=== PATIENT | female | born 1985 | race Two or more races ===

== ENCOUNTER → 2024-11-05 | Day surgery (SDC) | payer BC ==
[2024-11-02 08:41] LABS: Urine Bacteria None Seen /hpf (None Seen)
[2024-11-02 08:45] LABS: Basophils # (auto) 0 10 ^3/uL (0-0.2); Basophils % (auto) 0.5 % (0.0-2.0); Eosinophils # (auto) 0.3 10 ^3/uL (0-0.8); Eosinophils % (auto) 3.9 % (0.0-7.0); Hematocrit 44.7 % (36.0-46.0); Hemoglobin 15.5 g/dL (12.2-16.2); Lymphocytes # (auto) 1.9 10 ^3/uL (0.4-5.4); Lymphocytes % (auto) 26.9 % (10.0-50.0); Mean Corpuscular Hemoglobin 29.3 pg (28.0-32.0); Mean Corpuscular Hgb Conc. 34.7 g/dL (32.0-36.0); Mean Corpuscular Volume 84.6 fL (80.0-100.0); Monocytes # (auto) 0.7 10 ^3/uL (0-1.3); Monocytes % (auto) 9.5 % (0.0-12.0); Neutrophils # (auto) 4.2 10 ^3/uL (1.6-8.6); Neutrophils % (auto) 59.2 % (37.0-80.0); Nucleated Red Blood Cells % 0.1 %; Platelet Count (auto) 367 10^3/uL (140-450); Red Blood Cells 5.28 10^6/uL (4.0-5.20); Red Cell Distribution Width 13.4 % (11.8-14.3)
[2024-11-02 08:52] LABS: Urine Blood Negative /uL (Negative); Urine Clarity Clear (Clear); Urine Color Yellow (Yellow); Urine Mucus FEW (None Seen); Urine Protein, UAD Negative (Negative); Urine Specific Gravity 1.028 (1.001-1.035); Urine Squamous Epithelial Cell FEW /hpf (<5); Urine Urobilinogen Normal (Negative); Urine WBC 2 /HPF (0-5); Urine pH 5.5 (5.0-9.0)
[2024-11-02 09:02] LABS: INR 0.98 (0.9-1.15); Partial Thromboplastin Time 29.3 SEC (24.5-34.5); Prothrombin Time 10.4 sec (9.3-11.8)
[2024-11-02 09:15] LABS: Alanine Aminotransferase 16 U/L (7-40); Albumin 4.4 g/dL (3.2-4.8); Alkaline Phosphatase 103 U/L (46-116); Anion Gap 6 (5-15); Aspartate Aminotransferase 13 U/L (13-40); BUN/Creatinine Ratio 12.7 (10.0-20.0); Bilirubin, Total 0.5 mg/dL (0.2-1.0); Blood Urea Nitrogen 14 mg/dL (9-23); Calcium 9.8 mg/dL (8.7-10.4); Carbon Dioxide 28 mmol/L (20-31); Chloride 104 mmol/L (98-107); Glucose 95 mg/dL (74-106); Potassium 4.3 mmol/L (3.5-5.1); Sodium 138 mmol/L (136-145); Total Protein 7.6 g/dL (5.7-8.2)
[~2024-11-05] VITALS: Ht 180.3 cm; Wt 158.8 kg
[~2024-11-05] MED LIST: APPLTAB PO; ASHW1CAP PO; ATOR10TA52 PO; HYDR-4072 PO; HYDROmorphone HCL 2 MG/ML VL/or syr IV PRN; IBUP-1456 PO; LACTATED RINGER'S 1,000 ML IV SCH; MECL12.586 PO; METOCLOPRAMIDE HCL 5MG/ml INJ 2ml VIAL IV PRN; ONDANSETRON HCL 4 MG/2 ML VIAL IV ONE; SCOP1DIS9 TD; SERT-160 PO; SUMA100T15 PO; ZOFR4T PO; ceFAZolin 2 GM/D5W50ml 50 ML IV ONE
[2024-11-05 07:51] VITALS: TEMP 97.2; O2SAT 98
[2024-11-05] MEDS: ACETAMINOPHEN IV 1000 MG/100ML (10MG/ML) IV PRN (08:17)
[2024-11-05] MEDS: ONDANSETRON HCL 4 MG/2 ML VIAL IV PRN (08:17)
[2024-11-05 08:55] VITALS: BP 117/69; PULSE 66; RESP 11; O2SAT 98
--- NOTE | 2024-11-05 13:53 | POSTOP ---
Post-Operative Note Post-Operative Note Preop Diagnosis misplaced iud Postop Diagnosis: misplaced iud Operation performed d and c,hysteroscopy Specimen emc Anesthesia: Mac Anesthesiologist: humza Blood Loss(fluid mgmt) 20ml Surgeon Janny Lau Implant na Complications & Mgmt none Additional Remarks no iud visualized in the cavity,stenotic os h and p job number [id number] Date 11/05/24 Time 13:50 Visit Coding OBGYN Date of Service: November 05, 2024 Billing Provider: JANNY LAU DO PRECISION INSTRUMENT AND TOOL MAKER Common Visit Codes: 08379-[id number] OBS CARE (HIGH) PRECISION INSTRUMENT AND TOOL MAKER Procedure Codes: 80669-K&C, DIAG OR THERAPEUTIC JANNY LAU DO November 05, 2024 13:52
--- NOTE | 2024-11-05 14:01 | DVHOP2 ---
Operative Report DATE OF OPERATION: 11/05/24 PREOPERATIVE DIAGNOSES: misplaced iud,morbid obesity,stenotic cervical os POSTOPERATIVE DIAGNOSES: same SURGEON: Laya Lau D.O. ANESTHESIOLOGIST: humza TYPE OF ANESTHESIA : General. CONSENT: The patient was informed of the risks and benefits of the procedure. The patient was informed of the risks and benefits of the procedure. These include but are not limited to , complications of anesthesia, postoperative infection, incomplete relief of symptoms, recurrence of symptoms, damage to blood vessels, nerves and tendons, deep venous thrombosis, pulmonary embolism and possible need for repeat surgery in the future. FINDINGS: proliferative endometrium, 8 wks size uterus.stenotic Cervix, Bulbous, [place], and urethrovesical glands appeared normal.no evidence of any iud in the uterus or cervical canal SPECIMEN: EMC COMPLICATIONS: None. BLOOD PRODUCTS USED: None. PROCEDURES: Hysteroscopy and dilatation and curettage. PROCEDURE IN DETAIL: The patient was taken to the operating room and placed in supine position. General anesthesia was performed without difficulty. She was then placed in Drew stirrups and prepped and draped in sterile fashion. Examination under anesthesia showed her to have a 8wks size uterus, Bulbous, [place], and urethrovesical glands appeared normal. A weighted speculum was placed posteriorly and right-angle Jorge anteriorly. Cervix was identified which was very stenotic subsequently it was dilated ,prior to dilatation it was grasped with a sharp tooth tenaculum. Uterus sounded her to approximately 8 cm.the hysteroscopewas placed within the uterus in which she was found to have no evidence of iud ,endometrium had somewhaT PROLIFERATIVE LINING . ENDOMETRIAL CURRETTING WAS DONESPECIMEN WAS SENT FOR PATHOLOGY. All instruments were removed FROM VAG AND CX, The patient was taken to recovery room in stable condition. CONDITION: The patient is stable ESTIMATED BLOOD LOSS: 20 mL Visit Coding OBGYN Date of Service: November 05, 2024 Billing Provider: LAYA LAU DO LITHOGRAPHER APPRENTICE Common Visit Codes: [id number] OBS CARE (HIGH) LITHOGRAPHER APPRENTICE Procedure Codes: 85658-Y&C, DIAG OR THERAPEUTIC LAYA LAU DO November 05, 2024 14:01
--- NOTE | 2024-11-05 14:02 | DVHDS2 ---
Physician Discharge Progress N Final Diagnosis: misplaced iud Operations or Procedures: Operations or Procedures d and c,hysteroscopy Condition on Discharge: Good Disposition: Home Discharge Instructions: Diet: Regular Activity: Light activity Follow Up/Referral: 1wk sched Medications: david ryder Follow Up Care: Specialist: 1W Discharge Statement: "Patient was advised to return to the ER or call 911 if any headaches, dizziness, shortness of breath, chest pain, abdominal pain, bleeding, fevers, or worsening of medical condition. Patient was counseled about treatment plan, medications, possible side effects, patientverbalized understanding. All questions were answered to the best of my ability. This discharge took greater then 30 minutes in planning, reviewing documentation, counseling the patient, and discussing with other team members." Visit Coding OBGYN Date of Service: November 05, 2024 Billing Provider: JANNY BUSTAMANTE DO MATH TEACHER Common Visit Codes: [id number] OBS CARE (HIGH) MATH TEACHER Procedure Codes: 90107-E&C, DIAG OR THERAPEUTIC JANNY BUSTAMANTE DO November 05, 2024 14:02
== END | disposition home or self-care (01) ==
LOC: SUR 06:12
PROVIDERS: ATTEND Obstetrics & Gynecology
DX: T83.32XA Displacement of intrauterine contraceptive device, initial encounter (principal); G43.909 Migraine, unspecified, not intractable, without status migrainosus; N85.8 Other specified noninflammatory disorders of uterus; E78.00 Pure hypercholesterolemia, unspecified; F41.8 Other specified anxiety disorders; E66.01 Morbid (severe) obesity due to excess calories; Z68.42 Body mass index [BMI] 45.0-49.9, adult; Z79.899 Other long term (current) drug therapy; Z90.89 Acquired absence of other organs; Z98.890 Other specified postprocedural states; Y82.8 Other medical devices associated with adverse incidents; Y92.89 Other specified places as the place of occurrence of the external cause
CPT/HCPCS: 36415; 58558; 80053; 81001; 81025; 84702; 85025; 85610; 85730; 86850; 86900; 86901; 88305; J0690; J2405; J0131